=== PATIENT | female | born 1960 | race Caucasian/White ===

== ENCOUNTER 2017-02-07 11:19 | Emergency (ER) | payer MEDICARE, BC ==
[~2017-02-07] VITALS: Ht 154.9 cm; Wt 63.5 kg
[2017-02-07] MEDS ORDERED: SODIUM CHLORIDE 0.9% 1,000 ML IV ONE (12:30)
[2017-02-07 13:13] LABS: Hematocrit 43.4 % (36.0-46.0); Hemoglobin 14.2 g/dL (12.2-16.2); Mean Corpuscular Hemoglobin 29.2 pg (28.0-32.0); Mean Corpuscular Hgb Conc. 32.8 g/dL (32.0-36.0); Mean Platelet Volume 7.6 fL (6.9-10.8); Platelet Count (auto) 243 10^3/uL (140-450); Red Cell Distribution Width 14.3 % (11.8-14.3); White Blood Cell 12.7 10^3/uL (4.4-10.8)
[2017-02-07 13:23] LABS: Metamyelocytes % 0; Myelocytes % 0; Promyelocytes % 0; Reactive Lymphocytes 0
[2017-02-07 13:53] LABS: Albumin 3.8 g/dL (3.4-5.0); BUN/Creatinine Ratio 8.9; Calcium 8.8 mg/dL (8.5-10.1); Potassium 4.3 mmol/L (3.5-5.1)
[2017-02-07 13:55] LABS: Bilirubin, Total 0.3 mg/dL (0.2-1.0)
[2017-02-07 14:04] LABS: Large Platelets FEW; Platelet Estimate Adequate; Stomatocytes Few
[2017-02-07] MEDS ORDERED: cefTRIAXone 1GM/50ML D5W 50 ML IV ONE (14:30)
[2017-02-07] MEDS ORDERED: PIPERACILLIN-TAZOB 3.375GM 100 ML IV ONE (14:30)
[2017-02-07] MEDS ORDERED: DEXAMETHASONE INJECTION 10 MG in D5W 5% 50 ML IV ONE (14:30)
[2017-02-07 16:35] VITALS: BP 145/92
[2017-02-07] MEDS ORDERED: DEXAMETHASONE 4 MG TAB PO SCH (18:00)
== END 2017-02-07 17:03 | disposition short-term general hospital (02) ==
LOC: ER 11:19
DX: J18.1 Lobar pneumonia, unspecified organism (principal); C79.31 Secondary malignant neoplasm of brain; F31.9 Bipolar disorder, unspecified; G89.29 Other chronic pain; M54.9 Dorsalgia, unspecified; M54.2 Cervicalgia
CPT/HCPCS: 36415; 70450; 71020; 71250; 74176; 80053; 85007; 85027; 87040; 96361; 96365; 96368; 99291; J0696; J1100; J2543; J7030; J7060

== ENCOUNTER 2017-05-18 15:38 | Inpatient (IN) | payer MEDICARE, OTHER ==
[~2017-05-18] VITALS: Ht 154.9 cm; Wt 77.0 kg
[2017-05-18 16:57] LABS: Alanine Aminotransferase 66 U/L (13-56); Albumin 2.5 g/dL (3.4-5.0); Anion Gap 9 (5-15); Aspartate Aminotransferase 35 U/L (15-37); BUN/Creatinine Ratio 16.7; Blood Urea Nitrogen 11 mg/dL (7-18); Carbon Dioxide 27 mmol/L (21-32); Chloride 101 mmol/L (98-107); GFR African American 118 mL/min; GFR Non-African American 97 mL/min; Glucose 108 mg/dL (74-106); Hematocrit 25.7 % (36.0-46.0); INR 0.92 (0.9-1.15); Mean Corpuscular Hemoglobin 32.1 pg (28.0-32.0); Mean Corpuscular Hgb Conc. 35.2 g/dL (32.0-36.0); Mean Corpuscular Volume 91.2 fL (80.0-100.0); Platelet Count (auto) 156 10^3/uL (140-450); Potassium 3.7 mmol/L (3.5-5.1); Red Blood Cells 2.81 10^6/uL (4.0-5.20); Red Cell Distribution Width 17.9 % (11.8-14.3); Sodium 137 mmol/L (136-145); White Blood Cell 8.1 10^3/uL (4.4-10.8)
[2017-05-18 17:03] LABS: Alkaline Phosphatase 95 U/L (45-117); Bilirubin, Total 0.3 mg/dL (0.2-1.0); Total Protein 6.2 g/dL (6.4-8.2)
[2017-05-18 17:11] LABS: Band Neutrophils % (manual) 0; Basophils % (manual) 0 (0.0-2.0); Blast Cells 0; Eosinophils % (manual) 0 (0-7); Metamyelocytes % 0; Myelocytes % 0; Promyelocytes % 0; Reactive Lymphocytes 0
[2017-05-18 17:45] LABS: Lymphocytes % (manual) 19 (10.0-50.0); Monocytes % (manual) 5 (0-12)
[2017-05-18] MEDS ORDERED: ONDANSETRON HCL 4 MG/2 ML VIAL IV ONE (21:15)
[2017-05-18] MEDS ORDERED: MORPHINE SULF INJ 2 MG/ML SYRINGE 1ML IV ONE (21:15)
[2017-05-18] MEDS ORDERED: IOHEXOL 350 MG/ML 100ML IJ ONE (22:43)
[2017-05-18] MEDS ORDERED: ONDANSETRON HCL 4 MG/2 ML VIAL IV PRN (23:30)
[2017-05-18] MEDS ORDERED: MORPHINE SULF INJ 2 MG/ML SYRINGE 1ML IV PRN (23:30)
[2017-05-19] MEDS ORDERED: MORPHINE SULF INJ 2 MG/ML SYRINGE 1ML IV PRN ×2 (03:15)
[2017-05-19] MEDS ORDERED: TEMAZEPAM 15 MG CAP PO PRN (03:15)
[2017-05-19] MEDS ORDERED: ONDANSETRON HCL 4 MG/2 ML VIAL IV PRN (03:15)
[2017-05-19] MEDS ORDERED: NITROGLYCERIN 0.4 MG SL TAB SL PRN (03:15)
[2017-05-19] MEDS ORDERED: ACETAMINOPHEN 325 MG TAB PO PRN (03:15)
[2017-05-19] MEDS: ISOSORBIDE DINITRATE 10 MG TAB PO SCH ×3 (06:28→18:26)
[2017-05-19] MEDS: LEVOTHYROXINE SODIUM 50 MCG TAB PO SCH (06:41)
[2017-05-19] MEDS ORDERED: ONDA-133 PO (07:46)
[2017-05-19] MEDS ORDERED: GABA300C10 PO (07:46)
[2017-05-19] MEDS ORDERED: ISOS20TA56 PO ×2 (07:46→17:25)
[2017-05-19] MEDS ORDERED: ATOR40TA52 PO (07:46)
[2017-05-19] MEDS ORDERED: PRO10T PO (07:46)
[2017-05-19] MEDS ORDERED: LEVO175T31 PO (07:46)
[2017-05-19] MEDS ORDERED: OXY20CRT PO ×2 (07:46→17:25)
[2017-05-19] MEDS ORDERED: LEVE500T3 PO ×2 (07:46→17:25)
[2017-05-19] MEDS ORDERED: BUPR-60 PO (07:47)
[2017-05-19] MEDS ORDERED: NITR0.4S29 PO (07:47)
[2017-05-19] MEDS ORDERED: SENN-68 PO (07:47)
[2017-05-19] MEDS ORDERED: METH500T6 PO (07:47)
[2017-05-19] MEDS ORDERED: OXYC325T14 PO ×2 (07:48→17:25)
[2017-05-19 09:00] VITALS: BP 104/62
[2017-05-19] MEDS ORDERED: ASPirin 81 mg TAB PO SCH (10:00)
[2017-05-19] MEDS ORDERED: ENOXAPARIN SOD 40 MG/0.4 ML SYRINGE SC SCH (10:00)
[2017-05-19] MEDS: FAMOTIDINE 20 MG TAB PO SCH ×2 (10:19→22:16)
[2017-05-19] MEDS: HYDROcodone-ACET 5/325MG TAB PO PRN (10:43)
[2017-05-19 13:00] VITALS: BP 103/61
[2017-05-19] MEDS ORDERED: MAGNESIUM SULFATE 1GM/100ML 100 ML IV ONE (15:15)
[2017-05-19] MEDS ORDERED: LEVETIRACETAM 500 MG TAB PO ONE (15:15)
[2017-05-19 17:00] VITALS: BP 108/62
[2017-05-19] MEDS ORDERED: CYCL1TAB18 PO (17:25)
[2017-05-19] MEDS ORDERED: MEMA1TAB PO (17:25)
[2017-05-19] MEDS ORDERED: ATOR1TAB PO (17:25)
[2017-05-19] MEDS ORDERED: DEXA2TAB8 PO (17:25)
[2017-05-19] MEDS ORDERED: SENN1TAB14 PO (17:25)
[2017-05-19] MEDS ORDERED: LISI2.5T47 PO (17:25)
[2017-05-19] MEDS ORDERED: METO-169 PO (17:25)
[2017-05-19] MEDS ORDERED: FOLI1TAB6 PO (17:25)
[2017-05-19] MEDS ORDERED: TIZA4TAB9 PO (17:25)
[2017-05-19] MEDS ORDERED: LACTULOSE 20Gm/30ML SOLN PO PRN (19:15)
[2017-05-19 20:00] VITALS: BP 103/61
[2017-05-19 22:00] VITALS: BP 103/61
[2017-05-19] MEDS ORDERED: ATORVASTATIN 20 MG TAB PO SCH (22:00)
[2017-05-19] MEDS: LEVETIRACETAM 500 MG TAB PO SCH (22:16)
[2017-05-19] MEDS: oxyCODONE ER 20 MG TAB PO SCH (22:16)
[2017-05-20] MEDS: HYDROcodone-ACET 5/325MG TAB PO PRN (04:47)
[2017-05-20 06:00] VITALS: BP 118/65
[2017-05-20] MEDS: LEVOTHYROXINE SODIUM 50 MCG TAB PO SCH (06:39)
[2017-05-20] MEDS: ISOSORBIDE DINITRATE 10 MG TAB PO SCH ×2 (07:24→12:00)
[2017-05-20 08:00] VITALS: BP 110/83
[2017-05-20 09:16] LABS: Basophils # (auto) 0 uL; Basophils % (auto) 0.5 % (0.0-2.0); Eosinophils # (auto) 0 uL; Eosinophils % (auto) 0.2 % (0.0-7.0); Hematocrit 29.3 % (36.0-46.0); Lymphocytes # (auto) 1.9 uL; Lymphocytes % (auto) 22.3 % (10.0-50.0); Mean Corpuscular Hemoglobin 31.6 pg (28.0-32.0); Monocytes # (auto) 0.3 uL; Monocytes % (auto) 3.2 % (0.0-12.0); Neutrophils # (auto) 6.3 uL; Neutrophils % (auto) 73.8 % (37.0-80.0); Nucleated Red Blood Cells % 1.2 %; Platelet Count (auto) 210 10^3/uL (140-450); Red Blood Cells 3.15 10^6/uL (4.0-5.20); Red Cell Distribution Width 18.4 % (11.8-14.3); White Blood Cell 8.6 10^3/uL (4.4-10.8)
[2017-05-20 09:23] LABS: BUN/Creatinine Ratio 17.8; Potassium 3.9 mmol/L (3.5-5.1)
[2017-05-20 09:24] LABS: Albumin 2.7 g/dL (3.4-5.0); Bilirubin, Total 0.5 mg/dL (0.2-1.0); Calcium 8.1 mg/dL (8.5-10.1); Total Protein 6.5 g/dL (6.4-8.2)
[2017-05-20] MEDS: LEVETIRACETAM 500 MG TAB PO SCH (09:52)
[2017-05-20] MEDS: oxyCODONE ER 20 MG TAB PO SCH (09:53)
[2017-05-20] MEDS: FAMOTIDINE 20 MG TAB PO SCH (09:53)
[2017-05-20] MEDS ORDERED: DEXAMETHASONE 4 MG TAB PO SCH (10:15)
[2017-05-20] MEDS ORDERED: DEXAMETHASONE 4 MG TAB ONE (10:20)
[2017-05-20 12:00] VITALS: BP 96/54
[2017-05-20 15:22] VITALS: BP 96/54
[2017-05-20 17:09] VITALS: BP 117/73
== END 2017-05-20 17:00 | disposition home or self-care (01) | DRG 189 ==
LOC: ER 15:38 → TELE 15:39 → TELE-WESTW 05-19 08:35
PROVIDERS: ADMIT Nurse Practitioner; ATTEND Internal Medicine
DX: J96.01 Acute respiratory failure with hypoxia (principal); E44.0 Moderate protein-calorie malnutrition; C79.31 Secondary malignant neoplasm of brain; C34.90 Malignant neoplasm of unspecified part of unspecified bronchus or lung; R07.89 Other chest pain; G40.909 Epilepsy, unspecified, not intractable, without status epilepticus; I10 Essential (primary) hypertension; Z85.118 Personal history of other malignant neoplasm of bronchus and lung; Z88.5 Allergy status to narcotic agent; Z92.21 Personal history of antineoplastic chemotherapy
CPT/HCPCS: 36415; 36600; 71046; 71275; 80053; 82805; 83735; 83880; 84443; 84484; 85007; 85025; 85027; 85379; 85610; 85730; 93005; 93306